=== PATIENT | female | born 1945 | race Caucasian/White ===

== ENCOUNTER 2021-10-08 13:32 | Emergency (ER) | payer OTHER, MEDICARE ==
[2021-10-08 13:53] VITALS: TEMP 98.3; BMI 43.0
[2021-10-08] MEDS ORDERED: morphine SULFATE 4 MG/ML VIAL ONE ×2 (13:57→14:18)
[2021-10-08] MEDS ORDERED: morphine SULFATE 4 MG/ML VIAL IVPUSH ONE ×2 (14:00→14:20)
[2021-10-08 14:08] LABS: BASO % 0.7 % (0-2.0); HEMATOCRIT 43.7 % (32.4-45.2); HEMOGLOBIN 15.1 GM/dL (10.7-15.3); MCH 29.6 pg (25.7-33.7); MCHC 34.6 g/dl (32.0-36.0); MEAN CELL VOLUME 85.4 fl (80-96); MEAN PLT VOLUME 8.7 fl (7.5-11.1); MONO % 5.1 % (3.8-10.2); NEUT % 77.2 % (42.8-82.8); PLATELET COUNT 187 10^3/uL (134-434); RBC 5.11 M/mm3 (3.60-5.2); RDW 15.2 % (11.6-15.6); WHITE BLOOD COUNT 6.7 K/mm3 (4.0-10.0)
[2021-10-08 14:25] LABS: CHLORIDE 106 mmol/L (98-107); SODIUM 134 mmol/L (136-145)
[2021-10-08 14:27] LABS: CALCIUM 9.2 mg/dL (8.5-10.1)
[2021-10-08 14:28] LABS: ALBUMIN 3.3 g/dl (3.4-5.0); CO2 24 mmol/L (21-32); GLUCOSE,RANDOM 184 mg/dL (74-106)
[2021-10-08 14:31] LABS: CREATININE 0.8 mg/dL (0.55-1.3)
[2021-10-08 14:33] LABS: TOT PROT 7.7 g/dl (6.4-8.2)
[2021-10-08 14:34] LABS: ALK PHOS 112 U/L (45-117); BILIRUBIN,TOTAL 0.8 mg/dL (0.2-1)
[2021-10-08 14:37] LABS: ANION GAP 5 MMOL/L (8-16); SGOT/AST 108 U/L (15-37); SGPT/ALT 31 U/L (13-61)
[2021-10-08] MEDS ORDERED: LIDOCAINE HCL 1%, 10 MG/ML (50 mL VIAL) SQ ONE (14:43)
[2021-10-08] MEDS ORDERED: LIDOCAINE HCL 1%, 10 MG/ML (20ML VIAL) ONE (14:46)
[2021-10-08 18:39] VITALS: BP 164/61; PULSE 78
== END 2021-10-08 18:10 | disposition home or self-care (01) ==
LOC: JER 13:32
PROC: 0RSKXZZ Reposition Left Shoulder Joint, External Approach (ICD-10-PCS; principal; 2021-10-08)
PROC: 3E033NZ Introduction of Analgesics, Hypnotics, Sedatives into Peripheral Vein, Percutaneous Approach (ICD-10-PCS; 2021-10-08)
PROC: 3E033NZ Introduction of Analgesics, Hypnotics, Sedatives into Peripheral Vein, Percutaneous Approach (ICD-10-PCS; 2021-10-08)
PROC: 3E033NZ Introduction of Analgesics, Hypnotics, Sedatives into Peripheral Vein, Percutaneous Approach (ICD-10-PCS; 2021-10-08)
PROC: 3E033NZ Introduction of Analgesics, Hypnotics, Sedatives into Peripheral Vein, Percutaneous Approach (ICD-10-PCS; 2021-10-08)
DX: S43.005A Unspecified dislocation of left shoulder joint, initial encounter (principal); W01.0XXA Fall on same level from slipping, tripping and stumbling without subsequent striking against object, initial encounter
CPT/HCPCS: 36415; 71045-TC-FY; 73030-TC-LT-FY; 73070-TC-LT-FY; 80053; 85025; 99285-25